=== PATIENT | female | born 1985 | race African-American/Black ===

== ENCOUNTER 2016-04-04 14:46 | Observation (INO) | payer OTHER ==
[~2016-04-04] VITALS: Ht 165.1 cm; Wt 78.9 kg
[2016-04-04] MEDS ORDERED: PREN1TAB80 PO (15:08)
[2016-04-04 15:10] VITALS: BP 110/66
== END 2016-04-04 16:30 | disposition home or self-care (01) ==
LOC: 4S 14:46
PROVIDERS: ADMIT Obstetrics & Gynecology Gynecology; ATTEND Obstetrics & Gynecology Gynecology
DX: O48.0 Post-term pregnancy (principal); Z3A.41 41 weeks gestation of pregnancy
CPT/HCPCS: 59025; G0378

== ENCOUNTER 2016-04-06 08:25 | Inpatient (IN) | payer OTHER ==
[~2016-04-06] VITALS: Ht 167.6 cm; Wt 76.7 kg
[~2016-04-06 08:25] MED LIST: PREN1TAB80 PO
[2016-04-06] MEDS ORDERED: RINGERS SOLUTION,LACTATED 1,000 ML IV PRN (09:18)
[2016-04-06] MEDS ORDERED: OXYTOCIN 30 UNITS/LACT RINGERS 500 ML IV PRN ×2 (09:18→19:00)
[2016-04-06] MEDS ORDERED: CITRIC ACID/SODIUM CITRATE 30 ML SOLUTION UDCUP PO PRN (09:30)
[2016-04-06] MEDS ORDERED: METOCLOPRAMIDE HCL 5 MG/ML 2 ML VIAL IVP PRN (09:30)
[2016-04-06 09:58] LABS: BASOPHILS % (AUTO) 0.3 % (0.0-2.0); EOSINOPHILS % (AUTO) 1.6 % (1.0-6.0); HEMATOCRIT 30.4 % (36-46); LYMPHOCYTES # (AUTO) 1.6 K/uL (1.0-4.8); LYMPHOCYTES % (AUTO) 17.8 % (22.0-44.0); MEAN CORPUSCULAR HEMOGLOBIN 26.7 pg (26.0-34.0); MEAN CORPUSCULAR HGB CONC 32.8 G/dL (31.0-37.0); MEAN CORPUSCULAR VOLUME 81 fL (80-100); MONOCYTES # (AUTO) 0.6 K/uL (0.1-1.0); MONOCYTES % (AUTO) 6.3 % (2.0-9.0); NEUTROPHILS # (AUTO) 6.5 K/uL (1.8-7.7); RED BLOOD CELL COUNT(AUTO) 3.74 MIL/uL (4.00-5.20); RED CELL DISTRIBUTION WIDTH 15.7 % (11.5-14.5); WHITE BLOOD COUNT (AUTO) 8.8 K/uL (4.5-11.0)
[2016-04-06] MEDS ORDERED: MISOPROSTOL 25 MCG TABLET PO ONE ×2 (10:00→14:00)
[2016-04-06] MEDS: RINGERS SOLUTION,LACTATED 1,000 ML IV SCH ×2 (10:28→17:01)
[2016-04-06 11:36] VITALS: BP 115/72
[2016-04-06] MEDS: FentaNYL CITRATE-PF 100 MCG/2 ML VIAL IVP PRN ×5 (12:49→18:39)
[2016-04-06] MEDS ORDERED: INFLUENZA VIRUS VACCINE QVS 2016-17 (3YR+)/PF 60 MCG/0.5 ML SYRINGE IM ONE ×2 (13:45→14:00)
[2016-04-06] MEDS ORDERED: MISOPROSTOL 25 MCG TABLET PO SCH (14:00)
[2016-04-06] MEDS ORDERED: LIDOCAINE HCL 2%/EPI 1:200,000/PF 10 ML VIAL ONE (19:33)
[2016-04-06] MEDS ORDERED: FentaNYL/BUPIV 0.125%/NS/PF 200 ML ED ONE (19:33)
[2016-04-06] MEDS ORDERED: OXYGEN THERAPY IH SCH (20:00)
[2016-04-07] MEDS ORDERED: ONDANSETRON HCL 4 MG/2 ML VIAL IVP PRN (01:30)
[2016-04-07] MEDS ORDERED: PROMETHAZINE HCL 12.5 MG in SODIUM CHLORIDE 0.9% 50 ML IV PRN (01:30)
[2016-04-07] MEDS ORDERED: NALBUPHINE HCL 10 MG/ML VIAL IVP PRN (01:30)
[2016-04-07] MEDS ORDERED: LIDOCAINE HCL/PF 1% 30 ML VIAL ONE (05:32)
[2016-04-07] MEDS ORDERED: BENZOCAINE 20%/MENTHOL 56 GM SPRAY CANISTER TP PRN (06:00)
[2016-04-07] MEDS ORDERED: ACETAMINOPHEN/CODEINE 300-30 MG TABLET PO PRN ×2 (06:00)
[2016-04-07] MEDS ORDERED: GLYCERIN/WITCH HAZEL LEAF 40 PADS JAR TP PRN (06:00)
[2016-04-07] MEDS ORDERED: LANOLIN 7 GM OINTMENT TP PRN (06:00)
[2016-04-07] MEDS ORDERED: MEASLES/MUMPS/RUBELLA VACCINE, LIVE 0.5 ML/VIAL SQ ONE (06:00)
[2016-04-07] MEDS ORDERED: DiphenhydrAMINE HCL 50 MG/ML VIAL IVP ONE (06:45)
[2016-04-07] MEDS: MAGNESIUM HYDROXIDE SUSPENSION 30 ML UDCUP PO SCH ×2 (10:02→20:40)
[2016-04-07] MEDS: IBUPROFEN 600 MG TABLET PO PRN ×2 (11:19→19:04)
[2016-04-07] MEDS: SIMETHICONE 80 MG CHEWABLE TABLET CHEW SCH (20:40)
[2016-04-08] MEDS: IBUPROFEN 600 MG TABLET PO PRN ×2 (07:53→15:16)
[2016-04-08] MEDS: SIMETHICONE 80 MG CHEWABLE TABLET CHEW SCH ×3 (08:36→15:19)
[2016-04-08] MEDS: MAGNESIUM HYDROXIDE SUSPENSION 30 ML UDCUP PO SCH (08:43)
[2016-04-08] MEDS ORDERED: IBUP-2070 PO (19:32)
[2016-04-08] MEDS ORDERED: DSS100 PO (19:34)
[2016-04-08] MEDS ORDERED: SIME80 PO (19:38)
== END 2016-04-08 20:15 | disposition home or self-care (01) | DRG 542 ==
LOC: 4S 08:25 → OBSVTOIN 08:25
PROVIDERS: ADMIT Specialist; ATTEND Specialist
PROC: 10E0XZZ Delivery of Products of Conception, External Approach (ICD-10-PCS; principal; 2016-04-06)
PROC: 0DQR0ZZ Repair Anal Sphincter, Open Approach (ICD-10-PCS; 2016-04-06)
PROC: 0W8NXZZ Division of Female Perineum, External Approach (ICD-10-PCS; 2016-04-06)
PROC: 3E0S3CZ (ICD-10-PCS; 2016-04-06)
PROC: 00HU33Z Insertion of Infusion Device into Spinal Canal, Percutaneous Approach (ICD-10-PCS; 2016-04-06)
DX: O69.81X0 Labor and delivery complicated by cord around neck, without compression, not applicable or unspecified (principal); O48.0 Post-term pregnancy; O70.1 Second degree perineal laceration during delivery; Z3A.41 41 weeks gestation of pregnancy; Z37.0 Single live birth
CPT/HCPCS: 90471; J1200; J2590; J3010; J3490; J7120

== ENCOUNTER 2016-09-24 14:44 | Emergency (ER) | payer OTHER ==
[~2016-09-24] VITALS: Ht 167.6 cm; Wt 68.0 kg
[~2016-09-24 14:44] MED LIST changes: +DSS100 PO; +IBUP-2070 PO; +SIME80 PO
[2016-09-24] MEDS ORDERED: LIDOCAINE HCL 1% 10 ML VIAL INJ ONE (15:15)
[2016-09-24] MEDS ORDERED: PERTUSS(ACELL),DIPH,TET VAC/PF 0.5 ML VIAL IM ONE (15:15)
[2016-09-24 18:00] VITALS: BP 126/86
== END 2016-09-24 18:25 | disposition home or self-care (01) ==
LOC: EMS 14:45
DX: O9A.212 Injury, poisoning and certain other consequences of external causes complicating pregnancy, second trimester (principal); S61.220A Laceration with foreign body of right index finger without damage to nail, initial encounter; Z3A.15 15 weeks gestation of pregnancy; W23.0XXA Caught, crushed, jammed, or pinched between moving objects, initial encounter; Y93.E8 Activity, other personal hygiene; Y92.89 Other specified places as the place of occurrence of the external cause; Y99.8 Other external cause status
CPT/HCPCS: 29130; 73130; 90471; 90715; 99284; J3490

== ENCOUNTER 2017-02-02 11:27 | Emergency (ER) | payer OTHER ==
[~2017-02-02] VITALS: Ht 170.2 cm; Wt 72.7 kg
[2017-02-02] MEDS ORDERED: PRENATAL PO (11:37)
[2017-02-02 13:50] LABS: INFLUENZA TYPE A NEGATIVE FOR TYPE A (NEGATIVE); INFLUENZA TYPE B NEGATIVE FOR TYPE B (NEGATIVE)
[2017-02-02 14:48] VITALS: BP 111/63
== END 2017-02-02 14:51 | disposition home or self-care (01) ==
LOC: EMS 11:29
DX: O99.511 Diseases of the respiratory system complicating pregnancy, first trimester (principal); J20.9 Acute bronchitis, unspecified; R11.0 Nausea; J02.9 Acute pharyngitis, unspecified; Z3A.01 Less than 8 weeks gestation of pregnancy
CPT/HCPCS: 87804; 99284

== ENCOUNTER 2017-08-05 13:54 | Emergency (ER) | payer OTHER ==
[~2017-08-05] VITALS: Ht 167.6 cm; Wt 73.2 kg
[~2017-08-05 13:54] MED LIST changes: -DSS100 PO; -IBUP-2070 PO; -PREN1TAB80 PO; +PRENATAL PO; -SIME80 PO
[2017-08-05] MEDS ORDERED: IBUPROFEN 800 MG TABLET PO ONE (15:00)
[2017-08-05 16:52] VITALS: BP 111/71
== END 2017-08-05 16:53 | disposition home or self-care (01) ==
LOC: EMS 13:59
DX: S92.351A Displaced fracture of fifth metatarsal bone, right foot, initial encounter for closed fracture (principal); W01.0XXA Fall on same level from slipping, tripping and stumbling without subsequent striking against object, initial encounter; Y93.89 Activity, other specified; Y92.89 Other specified places as the place of occurrence of the external cause; Y99.8 Other external cause status
CPT/HCPCS: 99284

== ENCOUNTER 2018-05-28 10:45 | Observation (INO) | payer OTHER ==
[~2018-05-28] VITALS: Ht 167.6 cm; Wt 80.7 kg
[2018-05-28 12:06] VITALS: BP 108/66
== END 2018-05-28 19:18 | disposition home or self-care (01) ==
LOC: 4S 10:45
PROVIDERS: ADMIT Obstetrics & Gynecology; ATTEND Obstetrics & Gynecology
DX: O48.0 Post-term pregnancy (principal); Z3A.40 40 weeks gestation of pregnancy
CPT/HCPCS: 76805; 81002; G0378

== ENCOUNTER 2018-05-29 22:44 | Inpatient (IN) | payer OTHER ==
[~2018-05-29] VITALS: Ht 167.6 cm; Wt 70.8 kg
[2018-05-29] MEDS ORDERED: RINGERS SOLUTION,LACTATED 1,000 ML IV PRN (23:04)
[2018-05-29] MEDS ORDERED: OXYTOCIN 30 UNITS/LACT RINGERS 500 ML IV ONE (23:04)
[2018-05-29] MEDS ORDERED: CITRIC ACID/SODIUM CITRATE 30 ML SOLUTION UDCUP PO PRN (23:15)
[2018-05-29] MEDS ORDERED: OXYGEN THERAPY IH SCH (23:15)
[2018-05-29] MEDS ORDERED: METOCLOPRAMIDE HCL 5 MG/ML 2 ML VIAL IVP PRN (23:15)
[2018-05-29] MEDS ORDERED: FentaNYL CITRATE-PF 100 MCG/2 ML VIAL IVP PRN (23:30)
[2018-05-29] MEDS ORDERED: LIDOCAINE/PF 2% 5 ML VIAL ONE (23:33)
[2018-05-29] MEDS ORDERED: ROPIVACAINE HCL/PF 0.2% 100 ML ED ONE (23:34)
[2018-05-29 23:48] LABS: BASOPHILS % (AUTO) 0.3 % (0.0-2.0); EOSINOPHILS % (AUTO) 4.6 % (1.0-6.0); HEMATOCRIT 29.6 % (36-46); HEMOGLOBIN 9.6 g/dL (12.0-16.0); LYMPHOCYTES # (AUTO) 2.2 K/uL (1.0-4.8); MEAN CORPUSCULAR HGB CONC 32.5 G/dL (31.0-37.0); MEAN CORPUSCULAR VOLUME 74 fL (80-100); MONOCYTES # (AUTO) 0.7 K/uL (0.1-1.0); MONOCYTES % (AUTO) 6.9 % (2.0-9.0); NEUTROPHILS # (AUTO) 6.6 K/uL (1.8-7.7); NEUTROPHILS % (AUTO) 66.2 % (40.0-70.0); PLATELET COUNT (AUTO)-OB 277 K/uL (150-450); RED CELL DISTRIBUTION WIDTH 17.2 % (11.5-14.5)
[2018-05-30] MEDS ORDERED: DiphenhydrAMINE HCL 50 MG/ML VIAL IVP PRN
[2018-05-30] MEDS ORDERED: ONDANSETRON HCL 4 MG/2 ML VIAL IVP PRN
[2018-05-30] MEDS ORDERED: NALBUPHINE HCL 10 MG/ML VIAL IVP PRN
[2018-05-30] MEDS ORDERED: ROPIVACAINE HCL/PF 0.2% 100 ML ED PRN
[2018-05-30] MEDS: RINGERS SOLUTION,LACTATED 1,000 ML IV SCH ×2 (00:14→02:54)
[2018-05-30 00:57] VITALS: BP 123/76
[2018-05-30] MEDS ORDERED: LANOLIN 7 GM OINTMENT TP PRN (03:45)
[2018-05-30] MEDS ORDERED: ACETAMINOPHEN/CODEINE 300-30 MG TABLET PO PRN ×2 (03:45)
[2018-05-30] MEDS ORDERED: GLYCERIN/WITCH HAZEL LEAF 40 PADS JAR TP PRN (03:45)
[2018-05-30] MEDS ORDERED: BENZOCAINE 20%/MENTHOL 56 GM SPRAY CANISTER TP PRN (03:45)
[2018-05-30] MEDS ORDERED: MEASLES/MUMPS/RUBELLA VACCINE, LIVE 0.5 ML/VIAL SQ ONE (03:45)
[2018-05-30] MEDS: IBUPROFEN 600 MG TABLET PO PRN ×2 (07:45→17:50)
[2018-05-30] MEDS: MAGNESIUM HYDROXIDE SUSPENSION 30 ML UDCUP PO SCH ×2 (08:28→22:24)
[2018-05-31] MEDS: MAGNESIUM HYDROXIDE SUSPENSION 30 ML UDCUP PO SCH (10:00)
[2018-05-31] MEDS: IBUPROFEN 600 MG TABLET PO PRN (10:00)
== END 2018-05-31 15:30 | disposition home or self-care (01) | DRG 560 ==
LOC: 4S 22:44 → OBSVTOIN 22:44
PROVIDERS: ADMIT Obstetrics & Gynecology; ATTEND Obstetrics & Gynecology
PROC: 10E0XZZ Delivery of Products of Conception, External Approach (ICD-10-PCS; principal; 2018-05-30)
PROC: 0HQ9XZZ Repair Perineum Skin, External Approach (ICD-10-PCS; 2018-05-30)
PROC: 3E0R3BZ Introduction of Anesthetic Agent into Spinal Canal, Percutaneous Approach (ICD-10-PCS; 2018-05-30)
PROC: 00HU33Z Insertion of Infusion Device into Spinal Canal, Percutaneous Approach (ICD-10-PCS; 2018-05-30)
DX: O77.0 Labor and delivery complicated by meconium in amniotic fluid (principal); O70.0 First degree perineal laceration during delivery; Z3A.40 40 weeks gestation of pregnancy; Z37.0 Single live birth
CPT/HCPCS: 86850; 86900; 86901; J2590; J2795; J3490; J7120

== ENCOUNTER 2019-02-25 19:03 | Emergency (ER) | payer OTHER ==
[~2019-02-25] VITALS: Ht 167.6 cm; Wt 69.1 kg
[2019-02-25] MEDS ORDERED: ACETAMINOPHEN 500 MG TABLET PO ONE (20:30)
[2019-02-25] MEDS ORDERED: OSELTAMIVIR PHOSPHATE 75 MG CAPSULE PO ONE (20:30)
[2019-02-25] MEDS ORDERED: KETOROLAC TROMETHAMINE 30 MG/ML VIAL IM ONE (20:30)
[2019-02-25 20:53] VITALS: BP 119/68
== END 2019-02-25 20:50 | disposition home or self-care (01) ==
LOC: EMS 19:04
DX: J11.1 Influenza due to unidentified influenza virus with other respiratory manifestations (principal)
CPT/HCPCS: 96372; 99283; J1885

== ENCOUNTER 2019-04-18 21:11 | Emergency (ER) | payer OTHER ==
[~2019-04-18] VITALS: Ht 167.6 cm; Wt 68.2 kg
[2019-04-18] MEDS ORDERED: LORATADINE 10 MG TABLET PO ONE (22:30)
[2019-04-18 22:44] VITALS: BP 122/75
== END 2019-04-18 22:49 | disposition home or self-care (01) ==
LOC: EMS 21:14
DX: O99.519 Diseases of the respiratory system complicating pregnancy, unspecified trimester (principal); H57.89 Other specified disorders of eye and adnexa; R05 Cough; Z3A.00 Weeks of gestation of pregnancy not specified

== ENCOUNTER 2019-05-04 15:50 | Emergency (ER) | payer OTHER ==
[~2019-05-04] VITALS: Ht 167.6 cm; Wt 68.0 kg
[2019-05-04 15:54] VITALS: BP 130/79
== END 2019-05-04 17:00 | disposition home or self-care (01) ==
LOC: EMS 15:52
DX: O99.511 Diseases of the respiratory system complicating pregnancy, first trimester (principal); J45.901 Unspecified asthma with (acute) exacerbation; J06.9 Acute upper respiratory infection, unspecified; Z3A.08 8 weeks gestation of pregnancy

== ENCOUNTER 2019-09-22 17:53 | Observation (INO) | payer OTHER ==
[~2019-09-22] VITALS: Ht 167.6 cm; Wt 80.3 kg
[2019-09-22 18:27] VITALS: BP 102/58
[2019-09-22] MEDS ORDERED: ACETAMINOPHEN 325 MG TABLET PO PRN (19:15)
[2019-09-22 19:21] LABS: BASOPHILS % (AUTO) 0.3 % (0.0-2.0); EOSINOPHILS % (AUTO) 4.2 % (1.0-6.0); HEMATOCRIT 30.8 % (36-46); HEMOGLOBIN 10.7 g/dL (12.0-16.0); LYMPHOCYTES # (AUTO) 1.7 K/uL (1.0-4.8); MEAN CORPUSCULAR HEMOGLOBIN 30.1 pg (26.0-34.0); MEAN CORPUSCULAR HGB CONC 34.6 G/dL (31.0-37.0); MEAN CORPUSCULAR VOLUME 87 fL (80-100); MONOCYTES # (AUTO) 0.5 K/uL (0.1-1.0); MONOCYTES % (AUTO) 6.2 % (2.0-9.0); NEUTROPHILS # (AUTO) 5.6 K/uL (1.8-7.7); NEUTROPHILS % (AUTO) 68.3 % (40.0-70.0); PLATELET COUNT (AUTO)-OB 275 K/uL (150-450); RED BLOOD CELL COUNT(AUTO) 3.55 MIL/uL (4.00-5.20); RED CELL DISTRIBUTION WIDTH 13.8 % (11.5-14.5)
[2019-09-22 19:30] LABS: ANION GAP 9 mmol/L (8-16); CALCIUM, TOTAL 8.8 mg/dL (8.8-10.5); CARBON DIOXIDE 25 mmol/L (22-29); CHLORIDE 102 mmol/L (98-107); CREATININE 0.79 mg/dL (0.60-1.30); GLOMERULAR FILTR. RATE CALC > 60 mL/min (>60); GLUCOSE,RANDOM 83 mg/dL (70-110); POTASSIUM 3.6 mmol/L (3.5-5.1); SODIUM SERUM 136 mmol/L (136-145); UREA NITROGEN, BLOOD 8 mg/dL (7-18)
[2019-09-22 19:36] LABS: ALANINE AMINOTRANSFERASE 17 U/L (12-78); ALBUMIN 2.8 g/dL (3.4-5.0); ALKALINE PHOSPHATASE 87 U/L (46-116); ASPARTATE AMINOTRANSFERASE 19 U/L (15-37); BILIRUBIN,TOTAL 0.3 mg/dL (0.1-1.0); TOTAL PROTEIN, SERUM 6.6 g/dL (6.4-8.2); URIC ACID 4.3 mg/dL (2.6-7.2)
== END 2019-09-22 20:45 | disposition home or self-care (01) ==
LOC: 4S 17:53
PROVIDERS: ADMIT Obstetrics & Gynecology; ATTEND Obstetrics & Gynecology
DX: O26.893 Other specified pregnancy related conditions, third trimester (principal); R10.9 Unspecified abdominal pain; R42 Dizziness and giddiness; R51 Headache; Z3A.30 30 weeks gestation of pregnancy
CPT/HCPCS: 36415; 59025; 80053; 81001; 84550; 85025; G0378

== ENCOUNTER 2020-05-20 21:54 | Emergency (ER) | payer OTHER ==
[~2020-05-20] VITALS: Ht 167.6 cm; Wt 80.5 kg
[2020-05-20 21:56] VITALS: BP 113/60
== END 2020-05-21 00:58 | disposition home or self-care (01) ==
LOC: EMS 21:54
DX: T14.8XXA Other injury of unspecified body region, initial encounter (principal); V43.92XA Unspecified car occupant injured in collision with other type car in traffic accident, initial encounter; Y93.89 Activity, other specified; Y92.488 Other paved roadways as the place of occurrence of the external cause; Y99.8 Other external cause status
CPT/HCPCS: 99281; Z7502

== ENCOUNTER 2021-06-12 08:35 | Emergency (ER) | payer OTHER ==
[~2021-06-12] VITALS: Ht 167.6 cm; Wt 75.0 kg
[2021-06-12 09:25] LABS: BASOPHILS % (AUTO) 0.7 % (0.0-2.0); EOSINOPHILS % (AUTO) 8.1 % (1.0-6.0); LYMPHOCYTES % (AUTO) 27.7 % (22.0-44.0); MEAN CORPUSCULAR HGB CONC 34.3 G/dL (31.0-37.0); MEAN CORPUSCULAR VOLUME 90 fL (80-100); MONOCYTES # (AUTO) 0.5 K/uL (0.1-1.0); MONOCYTES % (AUTO) 6.6 % (2.0-9.0); NEUTROPHILS % (AUTO) 56.9 % (40.0-70.0); PLATELET COUNT (AUTO) 255 K/uL (150-450); RED CELL DISTRIBUTION WIDTH 14.3 % (11.5-14.5)
[2021-06-12 15:19] VITALS: BP 94/62
== END 2021-06-12 15:29 | disposition home or self-care (01) ==
LOC: EMS 08:40
DX: O20.9 Hemorrhage in early pregnancy, unspecified (principal); O26.891 Other specified pregnancy related conditions, first trimester; R10.84 Generalized abdominal pain; Z3A.01 Less than 8 weeks gestation of pregnancy
CPT/HCPCS: 76801; 76817; 84702; 85025; 86901; 99285

== ENCOUNTER 2022-09-14 20:55 | Emergency (ER) | payer OTHER ==
[~2022-09-14] VITALS: Ht 167.6 cm; Wt 78.0 kg
[2022-09-14 22:37] LABS: COVID AG,FIA SOURCE NASAL SWAB
[2022-09-14 23:04] LABS: INFLUENZA TYPE A NEGATIVE FOR TYPE A (NEGATIVE); INFLUENZA TYPE B NEGATIVE FOR TYPE B (NEGATIVE)
[2022-09-14 23:30] VITALS: BP 119/74; PULSE 83; RESP 18; TEMP 97.9
[2022-09-14] MEDS ORDERED: ACETAMINOPHEN 500 MG TABLET PO ONE (23:30)
== END 2022-09-15 | disposition home or self-care (01) ==
LOC: EMS 20:55
DX: O98.512 Other viral diseases complicating pregnancy, second trimester (principal); B33.8 Other specified viral diseases; Z3A.20 20 weeks gestation of pregnancy; Z20.822 Contact with and (suspected) exposure to COVID-19
CPT/HCPCS: 71045; 87804; 99284

== ENCOUNTER 2025-01-03 19:53 | Emergency (ER) | payer OTHER ==
[~2025-01-03] VITALS: Ht 170.2 cm; Wt 77.3 kg
[2025-01-03 19:55] VITALS: BP 114/73; PULSE 63; RESP 16; TEMP 98.1; O2SAT 100
[2025-01-03] MEDS: IBUPROFEN 600 MG TABLET PO ONE (23:08)
[2025-01-04] MEDS ORDERED: IBUP-1492 PO (01:47)
[2025-01-04] MEDS ORDERED: METH-812 PO (01:47)
== END 2025-01-04 02:05 | disposition home or self-care (01) ==
LOC: EMS 19:53
DX: S13.4XXA Sprain of ligaments of cervical spine, initial encounter (principal); S80.02XA Contusion of left knee, initial encounter; V43.52XA Car driver injured in collision with other type car in traffic accident, initial encounter; Y93.89 Activity, other specified; Y92.410 Unspecified street and highway as the place of occurrence of the external cause; Y99.8 Other external cause status
CPT/HCPCS: 72040; 72100; 84703; 99284; 73562-TC; Z7502; Z7610